=== PATIENT | male | born 1970 | race Two or more races ===

== ENCOUNTER 2016-12-27 21:19 | Emergency (ER) | payer MEDICAID ==
[~2016-12-27] VITALS: Ht 172.7 cm; Wt 75.3 kg
[2016-12-27] MEDS ORDERED: IBUPROFEN 200 MG TABLET PO ONE (23:00)
[2016-12-27 23:03] LABS: BLOOD UREA NITROGEN 29 mg/dL (7-18)
[2016-12-27 23:12] LABS: IS PT STATUS REG ER OR PRE ER? YES
[2016-12-27] MEDS ORDERED: IBUPROFEN 200 MG TABLET ONE (23:29)
[2016-12-28 01:00] VITALS: BP 127/85
== END 2016-12-28 01:14 | disposition home or self-care (01) ==
LOC: ED 12-28 01:08
DX: M25.512 Pain in left shoulder (principal); R73.9 Hyperglycemia, unspecified
CPT/HCPCS: 36415; 71010; 80048; 82040; 84484; 85025; 93005; 99285

== ENCOUNTER 2017-02-03 16:56 | Emergency (ER) | payer MEDICAID ==
[~2017-02-03] VITALS: Ht 172.7 cm; Wt 76.2 kg
[2017-02-03 17:01] VITALS: BP 154/97
[2017-02-03] MEDS ORDERED: METHOCARBAMOL 750 MG TABLET PO ONE (17:30)
[2017-02-03] MEDS ORDERED: KETOROLAC 30 MG/1 ML IM ONE (17:30)
[2017-02-03] MEDS ORDERED: OXYcodone/APAP 5/325MG TABLET PO ONE (17:30)
[2017-02-03] MEDS ORDERED: OXYcodone/APAP 5/325MG TABLET ONE (17:39)
[2017-02-03] MEDS ORDERED: KETOROLAC 30 MG/1 ML ONE (17:40)
[2017-02-03] MEDS ORDERED: METHOCARBAMOL 750 MG TABLET ONE (17:40)
[2017-02-03] MEDS ORDERED: SERT100T5 PO (19:03)
[2017-02-03] MEDS ORDERED: QUET25TA PO (19:03)
[2017-02-03] MEDS ORDERED: BUPR-86 PO (19:03)
[2017-02-03] MEDS ORDERED: LISI40TA PO (19:03)
== END 2017-02-03 19:06 | disposition home or self-care (01) ==
LOC: ED 17:26
DX: S16.1XXA Strain of muscle, fascia and tendon at neck level, initial encounter (principal); I10 Essential (primary) hypertension; Z76.0 Encounter for issue of repeat prescription; V53.5XXA Driver of pick-up truck or van injured in collision with car, pick-up truck or van in traffic accident, initial encounter; Y93.89 Activity, other specified; Y99.8 Other external cause status; Y92.89 Other specified places as the place of occurrence of the external cause
CPT/HCPCS: 72020; 72050; 72072; 96372; 99284; J1885

== ENCOUNTER 2017-02-09 00:57 | Emergency (ER) | payer MEDICAID ==
[~2017-02-09] VITALS: Ht 172.7 cm; Wt 76.4 kg
[~2017-02-09 00:57] MED LIST: BUPR-86 PO; LISI40TA PO; QUET25TA PO; SERT100T5 PO
[2017-02-09 00:59] VITALS: BP 152/97
[2017-02-09] MEDS ORDERED: METHOCARBAMOL 750 MG TABLET PO ONE (01:30)
[2017-02-09] MEDS ORDERED: DIPHENHYDRAMINE 25 MG CAPSULE PO ONE (01:30)
[2017-02-09] MEDS ORDERED: OXYcodone/APAP 5/325MG TABLET PO ONE (01:30)
[2017-02-09] MEDS ORDERED: METHOCARBAMOL 750 MG TABLET ONE (01:40)
[2017-02-09] MEDS ORDERED: OXYcodone/APAP 5/325MG TABLET ONE (01:40)
[2017-02-09] MEDS ORDERED: DIPHENHYDRAMINE 25 MG CAPSULE ONE (01:40)
== END 2017-02-09 02:00 | disposition home or self-care (01) ==
LOC: ED 01:54
DX: S16.1XXA Strain of muscle, fascia and tendon at neck level, initial encounter (principal); S39.012A Strain of muscle, fascia and tendon of lower back, initial encounter; I10 Essential (primary) hypertension; F17.200 Nicotine dependence, unspecified, uncomplicated; V89.2XXA Person injured in unspecified motor-vehicle accident, traffic, initial encounter; Y93.89 Activity, other specified; Y92.89 Other specified places as the place of occurrence of the external cause; Y99.9 Unspecified external cause status
CPT/HCPCS: 99284; J7512; Q0163

== ENCOUNTER 2017-02-13 21:10 | Emergency (ER) | payer MEDICAID ==
[~2017-02-13] VITALS: Ht 170.2 cm; Wt 72.7 kg
[2017-02-13 22:30] VITALS: BP 154/94
== END 2017-02-13 22:46 | disposition home or self-care (01) ==
LOC: ED 21:35
DX: L73.9 Follicular disorder, unspecified (principal); G89.29 Other chronic pain; M54.6 Pain in thoracic spine; I10 Essential (primary) hypertension
CPT/HCPCS: 99283

== ENCOUNTER 2017-02-20 00:27 | Emergency (ER) | payer MEDICAID ==
[~2017-02-20] VITALS: Ht 172.7 cm; Wt 71.7 kg
[2017-02-20 00:29] VITALS: BP 158/115
== END 2017-02-20 02:12 | disposition home or self-care (01) ==
LOC: ED 01:05
DX: L73.9 Follicular disorder, unspecified (principal); I10 Essential (primary) hypertension; F12.10 Cannabis abuse, uncomplicated
CPT/HCPCS: 99283

== ENCOUNTER 2017-05-02 00:32 | Inpatient (IN) | payer MEDICAID ==
[~2017-05-02] VITALS: Ht 172.7 cm; Wt 77.9 kg
[2017-05-02 00:55] LABS: HEMOGLOBIN 14.8 g/dL (13.7-18.0); WHITE BLOOD COUNT 5.8 x10^3/uL (3.4-10)
[2017-05-02 01:08] LABS: ASPARTATE AMINO TRANSFERASE 13 U/L (15-37); BLOOD UREA NITROGEN 19 mg/dL (7-18)
[2017-05-02 01:12] LABS: ACETAMINOPHEN < 2 mcg/mL (10-30)
[2017-05-02] MEDS: SODIUM CHLORIDE 0.9% 1,000 ML IV SCH ×3 (02:12→20:29)
[2017-05-02] MEDS ORDERED: ACETAMINOPHEN 325 MG TABLET PO PRN (02:30)
[2017-05-02 03:41] LABS: DAU SCREEN DISCLAIMER
[2017-05-02 07:51] LABS: HEMATOCRIT 43.9 % (39.2-51.8); HEMOGLOBIN 14.8 g/dL (13.7-18.0); WHITE BLOOD COUNT 5.6 x10^3/uL (3.4-10)
[2017-05-02 08:01] LABS: ASPARTATE AMINO TRANSFERASE 10 U/L (15-37); BLOOD UREA NITROGEN 18 mg/dL (7-18)
[2017-05-02 12:39] VITALS: BP 142/101
[2017-05-02] MEDS ORDERED: NICOTINE 21 MG/24 HR PATCH.TD24 TD ONE (16:30)
[2017-05-02 19:19] VITALS: BP 148/98
[2017-05-02] MEDS ORDERED: NICOTINE 14MG/24 HR PATCH.TD24 TD SCH (19:30)
[2017-05-02] MEDS: ENOXAPARIN 40 MG/0.4 ML SQ SCH (20:29)
[2017-05-02] MEDS: NICOTINE 21 MG/24 HR PATCH.TD24 TD SCH (20:30)
[2017-05-03] MEDS: SODIUM CHLORIDE 0.9% 1,000 ML IV SCH ×4 (03:12→22:50)
[2017-05-03 03:39] VITALS: BP 173/122
[2017-05-03] MEDS ORDERED: hydrALAzine 20 MG/ML, 1ML ONE (03:50)
[2017-05-03] MEDS ORDERED: hydrALAzine 20 MG/ML, 1ML IV PRN (04:00)
[2017-05-03 05:18] VITALS: BP 163/106
[2017-05-03] MEDS: AMLODIPINE 5 MG TABLET PO SCH ×2 (08:31→20:55)
[2017-05-03 08:47] VITALS: BP 144/86
[2017-05-03] MEDS ORDERED: NICOTINE 21 MG/24 HR PATCH.TD24 TD SCH (09:00)
[2017-05-03] MEDS: NICOTINE 21 MG/24 HR PATCH.TD24 TD SCH (10:51)
[2017-05-03] MEDS ORDERED: LORazepam 1MG TABLET ONE (12:08)
[2017-05-03 19:21] VITALS: BP 151/81
[2017-05-03] MEDS: ENOXAPARIN 40 MG/0.4 ML SQ SCH (20:55)
[2017-05-04 00:32] VITALS: BP 148/94
[2017-05-04 01:06] VITALS: BP 156/105
[2017-05-04] MEDS: SODIUM CHLORIDE 0.9% 1,000 ML IV SCH ×3 (05:30→17:56)
[2017-05-04 08:15] VITALS: BP 122/83
[2017-05-04] MEDS: AMLODIPINE 5 MG TABLET PO SCH ×2 (08:38→21:32)
[2017-05-04] MEDS: NICOTINE 21 MG/24 HR PATCH.TD24 TD SCH ×2 (08:38→17:49)
[2017-05-04] MEDS ORDERED: LORazepam 1MG TABLET ONE (11:08)
[2017-05-04 14:55] VITALS: BP 117/76
[2017-05-04 19:58] VITALS: BP 137/73
[2017-05-04] MEDS: ENOXAPARIN 40 MG/0.4 ML SQ SCH (21:32)
[2017-05-05] MEDS: SODIUM CHLORIDE 0.9% 1,000 ML IV SCH ×3 (01:30→14:50)
[2017-05-05 02:29] VITALS: BP 136/97
[2017-05-05 08:30] VITALS: BP 119/77
[2017-05-05] MEDS: AMLODIPINE 5 MG TABLET PO SCH (08:54)
[2017-05-05] MEDS: NICOTINE 21 MG/24 HR PATCH.TD24 TD SCH (08:55)
[2017-05-05] MEDS ORDERED: LORazepam 1MG TABLET ONE (09:07)
[2017-05-05] MEDS ORDERED: AMLO5TAB2 PO (12:57)
== END 2017-05-05 14:00 | DRG 918 ==
LOC: ED 00:53 → SUATTDRO 02:12 → EDIP 02:13 → 4EST 12:32 → 4WST 23:19
PROVIDERS: ADMIT Hospitalist; ATTEND Hospitalist
DX: T43.592A Poisoning by other antipsychotics and neuroleptics, intentional self-harm, initial encounter (principal); F20.9 Schizophrenia, unspecified; I10 Essential (primary) hypertension; F15.20 Other stimulant dependence, uncomplicated; F17.200 Nicotine dependence, unspecified, uncomplicated; F32.9 Major depressive disorder, single episode, unspecified; Z91.5 Personal history of self-harm
CPT/HCPCS: 36415; 71010; 80053; 80307; 80329; 81003; 82550; 83735; 84443; 85025; 93005; 99285; J1650; G0479; G0480; J0360; J7030

== ENCOUNTER 2017-12-16 11:51 | Emergency (ER) | payer MEDICAID ==
[~2017-12-16] VITALS: Ht 172.7 cm; Wt 85.3 kg
[~2017-12-16 11:51] MED LIST changes: +AMLO5TAB2 PO
[2017-12-16 11:55] VITALS: BP 206/132
== END 2017-12-16 13:10 | disposition home or self-care (01) ==
LOC: ED 13:04
DX: S16.1XXA Strain of muscle, fascia and tendon at neck level, initial encounter (principal); N48.89 Other specified disorders of penis; F20.9 Schizophrenia, unspecified; I10 Essential (primary) hypertension; F32.9 Major depressive disorder, single episode, unspecified; X58.XXXA Exposure to other specified factors, initial encounter; Y93.89 Activity, other specified; Y92.89 Other specified places as the place of occurrence of the external cause; Y99.8 Other external cause status
CPT/HCPCS: 93005; 99283

== ENCOUNTER 2018-05-20 21:16 | Emergency (ER) | payer MEDICAID ==
[~2018-05-20] VITALS: Ht 170.2 cm; Wt 84.7 kg
[~2018-05-20 21:16] MED LIST changes: -AMLO5TAB2 PO; +AMLO5TAB7 PO
[2018-05-20] MEDS ORDERED: DIPHENHYDRAMINE 25 MG CAPSULE PO ONE (22:00)
[2018-05-20] MEDS ORDERED: DIPHENHYDRAMINE 50 MG CAPSULE ONE (22:46)
[2018-05-20] MEDS ORDERED: TRIAMCINOLONE OINT 0.1%, 15GM TP ONE (23:00)
[2018-05-20 23:23] LABS: BASOPHILS # (AUTO) 0.04 x10^3/uL (0-0.1); BASOPHILS % (AUTO) 0 % (0-1); EOSINOPHILS # (AUTO) 0.58 x10^3/uL (0-0.4); EOSINOPHILS % (AUTO) 6 % (1-7); LYMPHOCYTES # (AUTO) 0.96 x10^3/uL (1-3.4); LYMPHOCYTES % (AUTO) 11 % (22-44); MD NO; MEAN CORPUSCULAR HEMOGLOBIN 30.2 pg (27.5-34.5); MEAN CORPUSCULAR VOLUME 89.1 fL (81-97); MEAN PLATELET VOLUME 7.5 fL (7.4-10.4); MONOCYTES # (AUTO) 0.54 x10^3/uL (0.2-0.8); MONOCYTES % (AUTO) 6 % (2-9); NEUTROPHILS # (AUTO) 6.96 x10^3/uL (1.8-6.8); NEUTROPHILS % (AUTO) 77 % (42-75); PLATELET COUNT 221 x10^3/uL (130-400); RED BLOOD COUNT 4.44 x10^6/uL (4.38-5.82); RED CELL DISTRIBUTION WIDTH 12.8 % (9.4-14.8)
[2018-05-20 23:35] LABS: ALBUMIN 3.3 g/dL (3.4-5.0); ANION GAP 10 mmol/L (5-15); CALCIUM 8.2 mg/dL (8.5-10.1); CHLORIDE 109 mmol/L (98-107); CREATININE 0.88 mg/dL (0.7-1.3)
[2018-05-21] MEDS ORDERED: HYDROcodone/APAP 5/325 TABLET ONE (00:23)
[2018-05-21] MEDS ORDERED: DEXAMETHASONE 4 MG TABLET ONE (00:24)
[2018-05-21] MEDS ORDERED: DEXAMETHASONE 4 MG TABLET PO ONE (00:30)
[2018-05-21] MEDS ORDERED: HYDROcodone/APAP 5/325 TABLET PO ONE (00:30)
[2018-05-21 01:33] VITALS: BP 112/73
== END 2018-05-21 01:35 | disposition home or self-care (01) ==
LOC: ED 23:11
DX: R21 Rash and other nonspecific skin eruption (principal); F20.9 Schizophrenia, unspecified; I10 Essential (primary) hypertension; F32.9 Major depressive disorder, single episode, unspecified
CPT/HCPCS: 36415; 80048; 82040; 85025; 86140; 99284; Q0163